=== PATIENT | female | born 1985 | race African-American/Black ===

== ENCOUNTER 2017-05-22 01:47 | Emergency (ER) | payer OTHER ==
[~2017-05-22] VITALS: Ht 157.5 cm; Wt 53.6 kg
[2017-05-22 02:55] LABS: BASOPHIL (%) 0.3 % (0-1); EOSINOPHIL (%) 0 % (0-5); HEMATOCRIT 36.4 % (36.0-46.0); HEMOGLOBIN 12.1 G/DL (11.9-15.5); LYMPHOCYTE (%) 10.5 % (15-42); LYMPHOCYTE COUNT 0.8 K/uL (1.0-2.8); MCH 27.4 PG (29.0-34.0); MCHC 33.2 G/DL (30.0-36.0); MCV 82.4 FL (83-99); MONOCYTE (%) 6.1 % (3-12); MONOCYTE COUNT 0.5 K/uL (0-0.8); NEUTROPHIL (%) 82.1 % (45-76); NEUTROPHIL COUNT 6.6 K/uL (1.8-6.4); PLATELET COUNT 360 K/uL (156-360); RBC DIS.WIDTH-CV 13.1 % (11.8-14.6); RBC DIS.WIDTH-SD 39.7 % (39-53); RED BLOOD COUNT 4.42 M/uL (3.80-5.20)
[2017-05-22 03:06] LABS: ALBUMIN 4.4 g/dL (3.2-4.8); CHLORIDE 106 mEq/L (99-109); POTASSIUM 3.5 mEq/L (3.7-5.4); SODIUM 141 mEq/L (136-147)
[2017-05-22 03:08] LABS: GLUCOSE 110 mg/dL (70-99)
[2017-05-22 03:09] LABS: TOTAL PROTEIN 7.2 g/dL (6.4-8.3)
[2017-05-22 03:10] LABS: TOTAL BILIRUBIN 0.4 mg/dL (0.0-1.0)
[2017-05-22 03:12] LABS: ALKALINE PHOSPHATASE 51 IU/L (3-129); CREATININE 1.1 mg/dL (0.6-1.3)
[2017-05-22 03:13] LABS: GFR ESTIMATE (CALCULATED) > 59 mL/min/; UREA NITROGEN (BUN) 13 mg/dL (9-23)
[2017-05-22 03:14] LABS: AST (GOT) 18 IU/L (2-34)
[2017-05-22 03:15] LABS: ALT (GPT) 36 IU/L (3-49)
[2017-05-22 03:21] LABS: QUANTITATIVE HCG < 4.0 MIU/ML
[2017-05-22 04:01] LABS: SERUM ETHYL ALCOHOL < 10 mg/dL
[2017-05-22 17:15] LABS: AMPHETAMINE NEGATIVE (500 ng/mL); BARBITURATES NEGATIVE (200 ng/mL); BENZODIAZEPINES PRESUMPTIVE POSITIVE (150 ng/mL); BUPRENORPHINE NEGATIVE (10 ng/mL); COCAINE NEGATIVE (150 ng/mL); METHADONE NEGATIVE (200 ng/mL); METHAMPHETAMINE NEGATIVE (500 ng/mL); OPIATES (MORPHINE) NEGATIVE (100 ng/mL); OXYCODONE NEGATIVE (100 ng/mL); PHENCYCLIDINE NEGATIVE (25 ng/mL); PROPOXYPHENE NEGATIVE (300 ng/mL); THC CANNABINOIDS NEGATIVE (50 ng/mL); TRICYCLIC ANTIDEPRESSANTS NEGATIVE (300 ng/mL)
[2017-05-22 17:52] LABS: BENZODIAZEPINES, URINE SCREEN Negative (200 ng/mL)
[2017-05-22 21:53] VITALS: BP 116/85
== END 2017-05-22 21:54 | disposition home or self-care (01) ==
LOC: EME 01:47
PROVIDERS: Emergency Medicine
DX: F29 Unspecified psychosis not due to a substance or known physiological condition (principal); F43.9 Reaction to severe stress, unspecified; F32.9 Major depressive disorder, single episode, unspecified
CPT/HCPCS: 80053; 84702; 84999; 85025; 90832; 99281; 99285; G0480; J1630; J2060